=== PATIENT | female | born 1965 | race Caucasian/White ===

== ENCOUNTER 2019-06-06 15:15 | Outpatient (CLI) | payer OTHER, SELFPAY ==
--- NOTE | 2019-06-06 15:23 | MM_ITS ---
WS: [id number] SCREENING DIGITAL MAMMOGRAM WITH CAD HISTORY: SCREENING COMPARISON: 05/08/2018 and 03/28/2017 Bilateral CC and MLO views submitted. Computer aided detection analyzed. Breast composition: There are scattered areas of fibroglandular density. No suspicious masses, microc alcifications or architectural distortion. MM/[place] [id number] IMPRESSION: BI-RADS: 1-Negative FOLLOW UP: 1 Year Follow-up
== END 2019-06-06 15:16 | disposition home or self-care (01) ==
LOC: RADSHAW 15:19
PROVIDERS: Family Provider Family Medicine; PCP Family Medicine; Visit Provider Family Medicine
DX: Z12.31 Encounter for screening mammogram for malignant neoplasm of breast (principal)
CPT/HCPCS: 77067

== ENCOUNTER 2021-10-20 13:44 | Outpatient (CLI) | payer OTHER, SELFPAY ==
--- NOTE | 2021-10-20 13:59 | MM_ITS ---
WS: [id number] Bilateral screening 3D tomosynthesis digital mammogram, 10/20/2021 Clinical Data: SCREENING Comparison: 06/06/2019, 05/08/2018, 03/28/2017, 03/23/2016, 03/18/2015, 03/17/2014, 04/10/2012. Findings: The breast parenchymal pattern shows glandular tissue No spiculated masses or clustered calcification s are seen. There are no secondary signs of carcinoma. MM/[place] [id number] Impression: 1. Negative bilateral mammogram unchanged. 2. Recommend annual screening mammograms. BIRADS: 1-Negative FOLLOW UP: 1 Year Follow-up The CAD tool checker was used.
== END 2021-10-20 13:45 | disposition home or self-care (01) ==
PROVIDERS: Family Provider Family Medicine; PCP Family Medicine; Visit Provider Family Medicine
DX: Z12.31 Encounter for screening mammogram for malignant neoplasm of breast (principal)
CPT/HCPCS: 77063; 77067

== ENCOUNTER 2022-12-14 09:23 | Outpatient (CLI) | payer BC, SELFPAY ==
--- NOTE | 2022-12-14 09:38 | MM_ITS ---
WS: [id number] Bilateral screening 3D tomosynthesis digital mammogram, 12/14/2022 Clinical Data: SCREENING Comparison: 10/20/2021, 06/06/2019, 05/08/2018, 03/28/2017, 03/23/2016, 03/18/2015, 04/06/2014, 04/10/2012 Findings: The breast parenchymal pattern shows fibroglandular tissue. No spiculated masses or clustered calcifi cations are seen. There are no secondary signs of carcinoma. Impression: 1. Negative bilateral mammogram unchanged. 2. Recommend annual screening mammograms. MM/[place] [id number] BIRADS: 1-Negative FOLLOW UP: 1 Year Follow-up The CAD credit checker was used.
== END 2022-12-14 09:24 | disposition home or self-care (01) ==
PROVIDERS: PCP Family Medicine; Visit Provider Family Medicine
DX: Z12.31 Encounter for screening mammogram for malignant neoplasm of breast (principal)
CPT/HCPCS: 77063; 77067

== ENCOUNTER 2024-05-07 08:20 | Outpatient (CLI) | payer BC, SELFPAY ==
--- NOTE | 2024-05-07 08:27 | MM_ITS ---
WS: [email or web address] SCREENING DIGITAL BREAST TOMOSYNTHESIS MAMMOGRAM WITH CAD HISTORY: SCREENING COMPARISON: 06/06/2019, 12/14/2022, 10/20/2021 Bilateral CC and MLO with tomosynthesis and synthetic mammography submitted. Computer aided detection analyzed. Breast composition: The breasts are heterogeneously dense, which may obscure small masses. Round mass with lobulated margins of slight increased density as compared to the adjacent breast parenchyma is identified. Mass is retroareolar measuring 4 x 7 x 4 mm. No additional mass. No suspicious calcificat ions within either breast. MM/MM scr tomosynthesis [id number] IMPRESSION: BI-RADS: 0 - Incomplete: Need additional imaging evaluation FOLLOW UP: Need Additional Imaging RIGHT breast: Spot compression views (CC and MLO). True ML. Ultrasound to follo w if abnormality persists.
== END 2024-05-07 08:21 | disposition home or self-care (01) ==
LOC: RAD 08:23
PROVIDERS: PCP Family Medicine; Visit Provider Family Medicine
DX: Z12.31 Encounter for screening mammogram for malignant neoplasm of breast (principal); R92.333 Mammographic heterogeneous density, bilateral breasts; N63.0 Unspecified lump in unspecified breast
CPT/HCPCS: 77063; 77067

== ENCOUNTER 2024-05-09 08:12 | Outpatient (CLI) | payer BC, SELFPAY ==
--- NOTE | 2024-05-09 | MM_ITS ---
WS: [email or web address] ADDITIONAL VIEWS RIGHT MAMMOGRAM WITH DIGITAL BREAST TOMOSYNTHESIS. RIGHT BREAST ULTRASOUND HISTORY: ABNORMAL MAMMOGRAM COMPARISON: 05/07/2024, 12/14/2022 RIGHT MAMMOGRAM: Spot compression views and true ML with digital breast tomosynthesis and SM. Breast composition: The breasts are heterogeneously dense, which may obscure small masses. Lobulated mass of increased density retroareolar measures 8 x 4 x 5 mm. Mass is well-circumscribed wi th no associated calcifications or distortion. RIGHT BREAST ULTRASOUND 2-D and color Doppler imaging submitted. Lobulated cystic mass retroareolar measures 0.6 x 0.4 x 0.5 cm. This corresponds in size and configur ation and location to the mammographic abnormality. This is either a tiny cluster of cysts or mild d uct ectasia. No nodule within the cystic components. No increased vascularity. MM/MM diag RT tomosynthesis [id number] IMPRESSION: BI-RADS: 3 - Probably Benign FOLLOW UP: 6 Month Follow-up Limited RIGHT breast ultrasound follow-up in 6 months. Discussed findings and f ollow-up with Mrs. Zaragoza at the time of exam.
--- NOTE | 2024-05-09 08:42 | US_ITS ---
WS: [email or web address] ADDITIONAL VIEWS RIGHT MAMMOGRAM WITH DIGITAL BREAST TOMOSYNTHESIS. RIGHT BREAST ULTRASOUND HISTORY: ABNORMAL MAMMOGRAM COMPARISON: 05/07/2024, 12/14/2022 RIGHT MAMMOGRAM: Spot compression views and true ML with digital breast tomosynthesis and SM. Breast composition: The breasts are heterogeneously dense, which may obscure small masses. Lobulated mass of increased density retroareolar measures 8 x 4 x 5 mm. Mass is well-circumscribed wi th no associated calcifications or distortion. RIGHT BREAST ULTRASOUND 2-D and color Doppler imaging submitted. Lobulated cystic mass retroareolar measures 0.6 x 0.4 x 0.5 cm. This corresponds in size and configur ation and location to the mammographic abnormality. This is either a tiny cluster of cysts or mild d uct ectasia. No nodule within the cystic components. No increased vascularity. US/US breast RT limited* [id number] IMPRESSION: BI-RADS: 3 - Probably Benign FOLLOW UP: 6 Month Follow-up Limited RIGHT breast ultrasound follow-up in 6 months. Discussed findings and f ollow-up with Mrs. Zaragoza at the time of exam.
== END 2024-05-09 08:13 | disposition home or self-care (01) ==
PROVIDERS: PCP Family Medicine; Visit Provider Family Medicine
DX: R92.8 Other abnormal and inconclusive findings on diagnostic imaging of breast (principal); R92.331 Mammographic heterogeneous density, right breast; R92.30 Dense breasts, unspecified
CPT/HCPCS: 76642; 77061; G0279

== ENCOUNTER 2025-02-24 09:45 | Outpatient (CLI) | payer BC, SELFPAY ==
--- NOTE | 2025-02-24 09:51 | US_ITS ---
WS: [email or web address] ULTRASOUND RIGHT BREAST, limited HISTORY: 6-month follow-up. COMPARISON: 05/09/2024. TECHNIQUE: 2-D and Doppler. Reidentified is a small cluster of cysts in the retroareolar RIGHT breast that was previously described. There is a small cyst with the entire cluster measuring 0.4 x 0.6 x 0.6 cm. No solid mass or increased vascularity. There is no shadowing. US/US breast RT limited* [id number] IMPRESSION: BI-RADS: 3- Probably Benign FOLLOW-UP: 6 Month Follow-up Patient to return in 6 months for annual mammogram. No additional follow-up of these small cysts necessary.
== END 2025-02-24 09:46 | disposition home or self-care (01) ==
LOC: RAD 09:46
PROVIDERS: PCP Family Medicine; Visit Provider Family Medicine
DX: R92.8 Other abnormal and inconclusive findings on diagnostic imaging of breast (principal); N60.11 Diffuse cystic mastopathy of right breast
CPT/HCPCS: 76642